=== PATIENT | female | born 1995 | race Two or more races ===

== ENCOUNTER 2024-07-07 18:16 | Emergency (ER) | payer SELFPAY ==
[2024-07-07 18:23] VITALS: BP 134/75; PULSE 78; TEMP 37.1; O2SAT 99; BMI 34.5
--- NOTE | 2024-07-07 18:34 | ED_ITS ---
HPI HPI - General Adult General Stated complaint: NAUSEA VOMITING BODY PAIN Time Seen by Provider: 07/07/24 18:30 Source: patient Mode of arrival: walk-in Limitations: no limitations History of Present Illness HPI narrative: The patient works in daycare, is coming to the ER with almost 2 to 3 days history of diarrhea and chills, no abdominal pain she did had some nausea but not as much as the diarrhea, the patient mentioned that she has been able to eat and drink but she keep going to the bathroom and that her concern about dehydration No exposure to anybody with similar symptoms Related Data Allergies Allergy/AdvReac Type Severity Reaction Status Date / Time No Known Drug Allergies Allergy Verified 07/07/24 18:27 Opioid HPI Opioid Management Most Recent Opioid Data: No Data to Display Review of Systems ROS Status of ROS 10 or more systems reviewed and unremark able except as noted in history and below Exam Narrative Exam Narrative: Nurses notes and vital signs reviewed and patient is not hypoxic. General: Well-appearing and in no apparent distress. Skin: Warm, dry, no pallor noted. No rash. Head: Normocephalic, atraumatic. Neck: Supple, non-tender. Eye: Pupils are equal, round and EOMI. No scleral icterus. Ears, Nose, Mouth, and Throat: TM are clear, no nasal mucosal hypertrophy. Oral mucosa is moist, no posterior oropharynx erythema, uvula is mid-line Cardiovascular: Regular Rate and Rhythm without murmur, gallop or rub. Respiratory: No accessory muscle use or respiratory distress. Lungs are clear to auscultation, no wheezing, rales or rhonchi Chest Wall: no tenderness Back: No midline thoracic or lumbar vertebral tenderness. No CVA tenderness Musculoskeletal: normal ROM, no calf or popliteal tenderness, no lower extremity edema/swelling GI: Abdomen is soft, non-distended. Normal bowel sounds. No masses appreciated. No tenderness to palpation. No rebound, guarding, or rigidity noted. Neurological: A&O x4. No cranial nerve dysfunction observed. No truncal ataxia. Moves all extremities. Sensation intact. Psychiatric: Cooperative and interactive. Normal mood and affect. Constitutional Vital Signs, click to edit/add: Last Vital Signs Temp 98.7 F 07/07/24 18:23 Pulse 78 07/07/24 18:23 Resp 18 07/07/24 18:23 BP 134/75 07/07/24 18:23 Pulse Ox 99 07/07/24 18:23 O2 Del Method Room Air 07/07/24 18:23 Course Vital Signs Vital signs: Vital Signs Temperature 98.7 F 07/07/24 18:23 Pulse Rate 78 07/07/24 18:23 Respiratory Rate 18 07/07/24 18:23 Blood Pressure 134/75 07/07/24 18:23 Pulse Oximetry 99 07/07/24 18:23 Oxygen Delivery Method Room Air 07/07/24 18:23 Temperature 98.7 F 07/07/24 18:23 Pulse Rate 78 07/07/24 18:23 Respiratory Rate 18 07/07/24 18:23 Blood Pressure 134/75 07/07/24 18:23 Pulse Oximetry 99 07/07/24 18:23 Oxygen Delivery Method Room Air 07/07/24 18:23 Medical Decision Making MDM Narrative Medical decision making narrative: The patient had a CBC chemistry as well as IV fluids started COVID test ordered as well Discharge Plan Discharge Patient Disposition: Still a Patient
[2024-07-07] MEDS: 0.9 % SODIUM CHLORIDE 1,000 ML 1000 ML IV (18:51)
[2024-07-07 19:15] LABS: Internal Control Within Normal Limits; SARS-CoV-2 Ag NEGATIVE (NEGATIVE)
[2024-07-07 19:24] LABS: Basophils Percent Auto 0.4 % (0.2-2.0); Eosinophils Absolute Auto 0.1 10^3/uL (0.0-0.7); Eosinophils Percent Auto 1.3 % (0.9-7.0); Hematocrit 37.7 % (36.0-48.0); Hemoglobin 12.3 g/dL (12.0-16.0); Immature Granulocytes Abs Auto 0.02 10^3/uL (0.00-0.03); Immature Granulocytes Pct Auto 0.4 % (0.0-0.5); Lymphocytes Absolute Auto 1.8 10^3/uL (1.2-3.8); Lymphocytes Percent Auto 32.7 % (20.5-60.0); Mean Corpuscular HGB Conc 32.6 g/dL (29.9-35.2); Mean Corpuscular Volume 82.7 fL (81.0-99.0); Mean Platelet Volume 9.8 fL (9.5-13.5); Monocytes Absolute Auto 0.6 10^3/uL (0.3-0.8); Monocytes Percent Auto 11.8 % (1.7-12.0); Neutrophils Absolute Auto 2.9 10^3/uL (1.4-6.5); Neutrophils Percent Auto 53.4 % (43.0-75.0); Platelet Count 202 10^3/uL (150-450); Red Blood Count 4.56 10^6/uL (4.20-5.40); White Blood Count 5.4 10^3/uL (4.0-11.0)
[2024-07-07 19:34] LABS: Alanine Aminotransferase 16 U/L (14-59); Albumin Level 3.7 g/dL (3.4-5.0); Alkaline Phosphatase 64 U/L (46-116); Anion Gap 13.4; Aspartate Amino Transferase 20 U/L (15-37); BUN Creatinine Ratio 7.8; Bilirubin Total 0.3 mg/dL (0.2-1.0); Calcium 8.9 mg/dL (8.5-10.1); Carbon Dioxide 26.7 mmol/L (21.0-32.0); Chloride 101 mmol/L (98-107); Estimated GFR (African America >60 (>=60); Estimated GFR (Non-African Ame >60 (>=60); Globulin 3.6 g/dL; Glucose 90 mg/dL (74-106); Potassium 3.1 mmol/L (3.5-5.1); Sodium 138 mmol/L (136-145); Total Protein 7.3 g/dL (6.4-8.2)
--- NOTE | 2024-07-07 20:17 | ED.NAVMDI1 ---
HPI - Nausea/Vomiting/Diarrhea General Chief complaint: Nausea/Vomiting/Diarrhea Stated complaint: NAUSEA VOMITING BODY PAIN Time Seen by Provider: 07/07/24 18:30 Source: patient Mode of arrival: walk-in Limitations: no limitations History of Present Illness HPI Narrative: This 28-year-old female was signed out to me at shift change. She presents for evaluation of nausea vomiting and diarrhea. She received IV fluids and routine testing. She is negative for COVID-19. She has a normal white count and hemoglobin. Her electrolytes are normal with the exception of a mildly low potassium at 3.1. She was seen and evaluated. She states she is feeling better after IV fluids. She will be given a dose of oral potassium prior to discharge and discharged home with prescription for Lomotil, Zofran and potassium supplementation. She was encouraged to follow a clear liquid diet for the next several days and slowly advance her diet as tolerated. Related Data Allergies Allergy/AdvReac Type Severity Reaction Status Date / Time No Known Drug Allergies Allergy Verified 07/07/24 18:27 Exam Constitutional Vital Signs, click to edit/add: Last Vital Signs Temp 98.7 F 07/07/24 18:23 Pulse 94 H 07/07/24 20:28 Resp 16 07/07/24 20:28 BP 135/77 07/07/24 20:28 Pulse Ox 100 07/07/24 20:28 O2 Del Method Room Air 07/07/24 18:23 Course Vital Signs Vital signs: Vital Signs Temperature 98.7 F 07/07/24 18:23 Pulse Rate 78 07/07/24 18:23 Respiratory Rate 18 07/07/24 18:23 Blood Pressure 134/75 07/07/24 18:23 Pulse Oximetry 99 07/07/24 18:23 Oxygen Delivery Method Room Air 07/07/24 18:23 Temperature 98.7 F 07/07/24 18:23 Pulse Rate 94 H 07/07/24 20:28 Respiratory Rate 16 07/07/24 20:28 Blood Pressure 135/77 07/07/24 20:28 Pulse Oximetry 100 07/07/24 20:28 Oxygen Delivery Method Room Air 07/07/24 18:23 MDM - Nausea/Vomiting/Diarrhea Lab Data Attestation: I reviewed the patient's lab results. Labs: Lab Results 07/07/24 07/07/24 Range/Units 18:45 18:53 WBC 5.4 (4.0-11.0) 10^3/uL RBC 4.56 (4.20-5.40) 10^6/uL Hgb 12.3 (12.0-16.0) g/dL Hct 37.7 (36.0-48.0) % MCV 82.7 (81.0-99.0) fL MCH 27.0 (26.7-34.0) pg MCHC 32.6 (29.9-35.2) g/dL RDW 13.0 (11.0-15.0) % Plt Count 202 (150-450) 10^3/uL MPV 9.8 (9.5-13.5) fL Neut % (Auto) 53.4 (43.0-75.0) % Lymph % (Auto) 32.7 (20.5-60.0) % Sullivan % (Auto) 11.8 (1.7-12.0) % Eos % (Auto) 1.3 (0.9-7.0) % Baso % (Auto) 0.4 (0.2-2.0) % Neut # (Auto) 2.9 (1.4-6.5) 10^3/uL Lymph # (Auto) 1.8 (1.2-3.8) 10^3/uL Sullivan # (Auto) 0.6 (0.3-0.8) 10^3/uL Eos # (Auto) 0.1 (0.0-0.7) 10^3/uL Baso # (Auto) 0.0 (0.0-0.1) 10^3/uL Abs Immat Gran (auto) 0.02 (0.00-0.03) 10^3/uL Imm/Tot Granulo (auto) 0.4 (0.0-0.5) % Sodium 138 (136-145) mmol/L Potassium 3.1 L (3.5-5.1) mmol/L Chloride 101 (98-107) mmol/L Carbon Dioxide 26.7 (21.0-32.0) mmol/L Anion Gap 13.4 BUN 5.0 L (7.0-18.0) mg/dL Creatinine 0.64 (0.55-1.02) mg/dL Est GFR ( Amer) >60 (>=60) Est GFR (Non-Af Amer) >60 (>=60) BUN/Creatinine Ratio 7.8 Glucose 90 (74-106) mg/dL Calcium 8.9 (8.5-10.1) mg/dL Total Bilirubin 0.3 (0.2-1.0) mg/dL AST 20 (15-37) U/L ALT 16 (14-59) U/L Alkaline Phosphatase 64 (46-116) U/L Total Protein 7.3 (6.4-8.2) g/dL Albumin 3.7 (3.4-5.0) g/dL Globulin 3.6 g/dL Albumin/Globulin Ratio 1.0 SARS-CoV-2 Ag (CV2AG) Negative (NEGATIVE) Discharge Plan Discharge Stand Alone Forms: Work/School Release, Portal Instructions Chief Complaint: Nausea/Vomiting/Diarrhea Clinical Impression: Gastroenteritis, Hypokalemia Patient Disposition: Home, Self-Care Time of Disposition Decision: 20:23 Mode of Transportation: Private Vehicle Print Language: Bengali Instructions: Hypokalemia (ED), Gastroenteritis (ED), Acute Nausea and Vomiting (ED), Acute Diarrhea (ED) Additional Instructions: Follow a clear liquid diet for the next several days and slowly advance her diet as tolerated. Use Zofran for nausea, Lomotil for diarrhea. Please discontinue taking the Lomotil after your diarrhea resolves because it can cause constipation. Use potassium as directed for your low potassium that was discovered on your blood work. Discharge Date/Time: 07/07/24 20:43
[2024-07-07] MEDS: POTASSIUM CHLORIDE 10 MEQ ER TABLET 20 MEQ PO (20:22)
[2024-07-07 20:28] VITALS: BP 135/77; PULSE 94; O2SAT 100
--- NOTE | 2024-07-07 20:42 | PC.NURSE ---
no vomiting or diarrhea while in ER
== END 2024-07-07 20:43 | disposition home or self-care (01) ==
PROVIDERS: Emergency Medicine; Emergency Provider Emergency Medicine
DX: K52.9 Noninfective gastroenteritis and colitis, unspecified (principal); E87.6 Hypokalemia; Z20.822 Contact with and (suspected) exposure to COVID-19
CPT/HCPCS: 36415; 80053; 85025; 87811; 99284

== ENCOUNTER 2024-07-13 08:57 | Emergency (ER) | payer SELFPAY ==
[2024-07-13 08:59] VITALS: BP 116/73; PULSE 84; TEMP 37; O2SAT 99; BMI 32.4
--- NOTE | 2024-07-13 09:16 | ED.NAVMDI1 ---
HPI - Nausea/Vomiting/Diarrhea General Chief complaint: Abdominal Pain Stated complaint: FLU LIKE SYMPTOMS Time Seen by Provider: 07/13/24 09:04 Source: patient Mode of arrival: walk-in History of Present Illness HPI Narrative: 28-year-old female presents to the emergency department for nausea vomiting and diarrhea. She has had this for about a week and was seen here 6 days ago. She continues to have both diarrhea and some vomiting. LMP was just under 4 weeks ago. She has no concern for . No blood in her diarrhea or emesis. No recent hospitalization and no recent antibiotic use. Related Data Home Medications ?Medication ?Instructions ?Recorded ?Confirmed diphenoxylate-atropine 2.5 tab 07/13/24 mg-0.025 mg tablet ondansetron HCl 4 mg tablet mg 07/13/24 potassium chloride 10 mEq meq 07/13/24 capsule,extended release Allergies Allergy/AdvReac Type Severity Reaction Status Date / Time No Known Drug Allergies Allergy Verified 07/07/24 18:27 Review of Systems ROS Narrative A ten point review of systems is negative except as noted above. PFSH PFSH Social History Little interest or pleasure in doing things: not at all Feeling down, depressed, or hopeless: not at all Exam Narrative Exam Narrative: Nurses note and vital signs reviewed and patient is not hypoxic. General: The patient appears well and in no apparent distress. Patient is resting comfortably on cart. Skin: Warm, dry, no pallor noted. There is no rash noted. Head: Normocephalic, atraumatic Eye: Normal conjunctiva, no drainage Ears, Nose, Mouth, and Throat: oral mucosa is moist. Nares patent. Cardiovascular: Regular Rate and Rhythm Respiratory: Patient is in no distress, no accessory muscle use, lungs are clear to auscultation, no wheezing, rales or rhonchi Back: non-tender GI: Soft and nontender Musculoskeletal: The patient has no evidence of calf tenderness, no pitting edema, symmetrical pulses noted bilaterally Neurological: Awake and alert Psychiatric: Cooperative Constitutional Vital Signs, click to edit/add: Last Vital Signs Temp 98.6 F 07/13/24 08:59 Pulse 84 07/13/24 08:59 Resp 16 07/13/24 08:59 BP 116/73 07/13/24 08:59 Pulse Ox 99 07/13/24 08:59 O2 Del Method Room Air 07/13/24 08:59 Course Vital Signs Vital signs: Vital Signs Temperature 98.6 F 07/13/24 08:59 Pulse Rate 84 07/13/24 08:59 Respiratory Rate 16 07/13/24 08:59 Blood Pressure 116/73 07/13/24 08:59 Pulse Oximetry 99 07/13/24 08:59 Oxygen Delivery Method Room Air 07/13/24 08:59 Temperature 98.6 F 07/13/24 08:59 Pulse Rate 84 07/13/24 08:59 Respiratory Rate 16 07/13/24 08:59 Blood Pressure 116/73 07/13/24 08:59 Pulse Oximetry 99 07/13/24 08:59 Oxygen Delivery Method Room Air 07/13/24 08:59 MDM - Nausea/Vomiting/Diarrhea MDM Narrative Medical decision making narrative: Blood work is essentially normal. Her potassium has normalized. Stool culture was ordered but at the time of this dictation she has not been able to produce a specimen. She was given a work note and is able to be discharged home. Treatment diagnosis and follow-up were discussed with the patient. Differential Diagnosis Differential diagnosis: Likely food poisoning, gastroenteritis and dehydration Lab Data Attestation: I reviewed the patient's lab results. Labs: Lab Results 07/13/24 Range/Units 09:23 WBC 5.3 (4.0-11.0) 10^3/uL RBC 4.64 (4.20-5.40) 10^6/uL Hgb 12.4 (12.0-16.0) g/dL Hct 38.4 (36.0-48.0) % MCV 82.8 (81.0-99.0) fL MCH 26.7 (26.7-34.0) pg MCHC 32.3 (29.9-35.2) g/dL RDW 13.0 (11.0-15.0) % Plt Count 209 (150-450) 10^3/uL MPV 9.4 L (9.5-13.5) fL Neut % (Auto) 64.2 (43.0-75.0) % Lymph % (Auto) 23.8 (20.5-60.0) % Louisa % (Auto) 10.5 (1.7-12.0) % Eos % (Auto) 1.1 (0.9-7.0) % Baso % (Auto) 0.2 (0.2-2.0) % Neut # (Auto) 3.4 (1.4-6.5) 10^3/uL Lymph # (Auto) 1.3 (1.2-3.8) 10^3/uL Louisa # (Auto) 0.6 (0.3-0.8) 10^3/uL Eos # (Auto) 0.1 (0.0-0.7) 10^3/uL Baso # (Auto) 0.0 (0.0-0.1) 10^3/uL Abs Immat Gran (auto) 0.01 (0.00-0.03) 10^3/uL Imm/Tot Granulo (auto) 0.2 (0.0-0.5) % Sodium 139 (136-145) mmol/L Potassium 4.1 (3.5-5.1) mmol/L Chloride 104 (98-107) mmol/L Carbon Dioxide 27.0 (21.0-32.0) mmol/L Anion Gap 12.1 BUN 3.0 L (7.0-18.0) mg/dL Creatinine 0.68 (0.55-1.02) mg/dL Est GFR ( Amer) >60 (>=60) Est GFR (Non-Af Amer) >60 (>=60) BUN/Creatinine Ratio 4.4 Glucose 90 (74-106) mg/dL Calcium 9.3 (8.5-10.1) mg/dL Serum HCG, Qual Negative (NEGATIVE) Discharge Plan Discharge Chief Complaint: Abdominal Pain Clinical Impression: Diarrhea Patient Disposition: Home, Self-Care Time of Disposition Decision: 09:58 Condition: Good Mode of Transportation: Private Vehicle Prescriptions / Home Meds: No Action potassium chloride 10 mEq capsule, extended release ondansetron HCl 4 mg tablet diphenoxylate-atropine 2.5-0.025 mg tablet Print Language: Sri Lankan Instructions: Acute Diarrhea (ED) Referrals: Physician,Non-Staff, MD [Primary Care Provider] - 1 week
[2024-07-13 09:32] LABS: Basophils Percent Auto 0.2 % (0.2-2.0); Eosinophils Absolute Auto 0.1 10^3/uL (0.0-0.7); Eosinophils Percent Auto 1.1 % (0.9-7.0); Hematocrit 38.4 % (36.0-48.0); Hemoglobin 12.4 g/dL (12.0-16.0); Immature Granulocytes Abs Auto 0.01 10^3/uL (0.00-0.03); Immature Granulocytes Pct Auto 0.2 % (0.0-0.5); Lymphocytes Absolute Auto 1.3 10^3/uL (1.2-3.8); Lymphocytes Percent Auto 23.8 % (20.5-60.0); Mean Corpuscular HGB Conc 32.3 g/dL (29.9-35.2); Mean Corpuscular Hemoglobin 26.7 pg (26.7-34.0); Mean Corpuscular Volume 82.8 fL (81.0-99.0); Mean Platelet Volume 9.4 fL (9.5-13.5); Monocytes Absolute Auto 0.6 10^3/uL (0.3-0.8); Monocytes Percent Auto 10.5 % (1.7-12.0); Neutrophils Absolute Auto 3.4 10^3/uL (1.4-6.5); Neutrophils Percent Auto 64.2 % (43.0-75.0); Platelet Count 209 10^3/uL (150-450); Red Blood Count 4.64 10^6/uL (4.20-5.40); White Blood Count 5.3 10^3/uL (4.0-11.0)
[2024-07-13] MEDS: ONDANSETRON PF 4 MG/2 ML VIAL IV (09:32)
[2024-07-13] MEDS: 0.9 % SODIUM CHLORIDE 1,000 ML 1000 ML IV (09:32)
[2024-07-13 09:40] LABS: BUN Creatinine Ratio 4.4; Calcium 9.3 mg/dL (8.5-10.1); Chloride 104 mmol/L (98-107); Estimated GFR (African America >60 (>=60); Estimated GFR (Non-African Ame >60 (>=60); Glucose 90 mg/dL (74-106); Potassium 4.1 mmol/L (3.5-5.1); Sodium 139 mmol/L (136-145)
[2024-07-13 09:44] LABS: Anion Gap 12.1
[2024-07-13 09:47] LABS: HCG Qualitative NEGATIVE (NEGATIVE); Internal Control Within Normal Limits
== END 2024-07-13 10:33 | disposition home or self-care (01) ==
PROVIDERS: Emergency Provider Emergency Medicine
DX: R19.7 Diarrhea, unspecified (principal)
CPT/HCPCS: 36415; 80048; 84703; 85025; 87045; 87046; 87427; 96361; 96374; 99284; J2405

== ENCOUNTER 2024-07-13 18:44 | Outpatient (REF) | payer SELFPAY ==
--- OUTSIDE RECORDS SUMMARY | 2024-07-13 18:50 | XMS_ITS | CCD ---
Author Organization [facility] Inform ion Partnership [facility] Care Team Providers Care Setter Machine Name Role Phone Kandace Rubi Unavailable Encounters Encounter Date Encounter Type Care Provider Facility Start: 11-15-2022 (URG) Urgent Care Visit Kandace Rubi [facility] Start: 11-15-2022 End: 11-15-2022 ambulatory Kandace Rubi Other [facility] Other Social History Date Type Detail Facility Unknown if ever smoked [facility] Other Sex Assigned At Sex Assigned At Bir th [facility] Other Evaluation note 11-15-2022 Note Date & Type Note Facility 11-15-2022 Evaluation note Encounter Date Diagnosis Assessment Notes Nov, Other patient was not seen by provider, unable to provide proof of updated vaccines, no charge for visit [facility] Other Additional Source Comments REASON FOR VISIT (unrecogniz ed section and content) work physical, unable to [place] FOR RECORDS PERTAINING TO PATIENTS WHO ARE OR HAVE BEEN ENROLLED IN A CHEMICAL DEPENDENCY/SUBSTANCEABUSE PROGRAM, SOME INFORMATION MAY BE OMITTED. This clinical summary was aggregated from multiple sources. Caution should be exercised in using it in the provision of clinical care. This summary normalizes information from multiple sources, and as a consequence, information in this document may materially change the coding, format and clinical context of patient data. In addition, data may be omitted in some cases. CLINICAL DECISIONS SHOULD BE BASED ON THE PRIMARY CLINICAL RECORDS. [employer] [facility]. provides no warranty or guarantee of the accuracy or completeness of information in this document.
== END 2024-07-13 18:45 | disposition home or self-care (01) ==
LOC: LAB 18:44
PROVIDERS: Visit Provider Emergency Medicine
DX: R19.7 Diarrhea, unspecified (principal)
CPT/HCPCS: 87045; 87046; 87427